=== PATIENT | female | born 1955 | race Caucasian/White ===

== ENCOUNTER 2017-08-25 15:47 | Emergency (ER) | payer SELFPAY ==
[2017-08-25 16:06] VITALS: BP 144/72
--- NOTE | 2017-08-25 16:13 | UC ---
Respiratory Complaint HPI - HPI Summary HPI Summary: Has been having asthma flare since last week when she was around chemical fumes at work. Using combivent inhaler every 3-4 hours, still wheezing and SOB. Has used inhaled steroid in past but not currently on. - History of Current Complaint Stated Complaint: EXPOSURE Time Seen by Provider: 08/25/17 16:03 Hx Obtained From: Patient ?: No Onset/Duration: Gradual Onset, Lasting Days Timing: Constant Severity Initially: Mild Severity Currently: Moderate Pain Intensity: 0 Character: Cough: Nonproductive Aggravating Factors: Exertion, Deep Breaths, Recumbent Position Alleviating Factors: Bronchodilator, Upright Position Associated Signs And Symptoms: Positive: Wheezing - Allergies/Home Medications Allergies/Adverse Reactions: Allergies Allergy/AdvReac Type Severity Reaction Status Date / Time erythromycin base Allergy GI Upset Verified 08/25/17 16:09 Gadolinium-Containing Allergy Hives Verified 08/25/17 16:09 Contrast Medi iodine Allergy Rash Verified 08/25/17 16:09 Home Medications: Home Medications Etanercept [Enbrel] 1 dose IM MONTHLY 08/25/17 [History Confirmed 08/25/17] Hydrochlorothiazide TAB* [Hydrodiuril TAB*] 1 tab PO DAILY 08/25/17 [History Confirmed 08/25/17] Insulin GLARGINE(*) [Lantus(*)] 48 unit SQ DAILY 08/25/17 [History Confirmed 11/07] Levothyroxine TAB* [Synthroid 25 MCG TAB*] 1 tab PO DAILY 08/25/17 [History Confirmed 08/25/17] PMH/Surg Hx/FS Hx/Imm Hx - Additional Past Medical History Additional PMH: RA Endocrine History: Diabetes Cardiovascular History: Hypertension Respiratory History: Asthma - Surgical History Surgical History: Yes Surgery Procedure, Year, and Place: T&A, D&C, laproscopy [employer]- lysis of adhesions , carpal tunnel [place], [place] [facility] [place], 05[place] [facility] [place], 03/26-[facility]na liver biopsy (benign), 02/25 [facility]-, (right) leg abcess. (right) internal derangement knee + meniscus tear, 12/26- removal benign liver mass, 11[place] [facility] [place], 12[place]28 [facility]- (left) TKR + (right) patella ORIF + 2 implant screws, [place] [facility] [place]. w/gastric polyp removal + CLOtest biopsy. - Family History Known Family History: Positive: Hypertension - Social History Occupation: Employed Full-time Alcohol Use: None Substance Use Type: None Smoking Status (MU): Never Smoked Tobacco Review of Systems Constitutional: Negative Skin: Negative Eyes: Negative ENT: Negative Respiratory: Shortness Of Breath, Cough Cardiovascular: Negative Gastrointestinal: Negative Genitourinary: Negative Motor: Negative Neurovascular: Negative Musculoskeletal: Negative Neurological: Negative Psychological: Negative Is Patient Immunocompromised?: No All Other Systems Reviewed And Are Negative: Yes Physical Exam Triage Information Reviewed: Yes Appearance: Well-Appearing, No Pain Distress, Obese Vital Signs: Initial Vital Signs Temp 97.6 F 08/25/17 16:03 Pulse 86 08/25/17 16:03 Resp 18 08/25/17 16:03 BP 144/72 08/25/17 16:03 Pulse Ox 97 08/25/17 16:03 Vital Signs Reviewed: Yes Eye Exam: Normal Eyes: Positive: Conjunctiva Clear ENT: Positive: Normal ENT inspection, Hearing grossly normal, Pharynx normal, TMs normal. Negative: TM bulging, TM dull, TM red Neck exam: Normal Neck: Positive: Supple, Nontender Respiratory: Positive: No respiratory distress, Decreased breath sounds. Negative: Wheezing, Expiration Cardiovascular Exam: Normal Cardiovascular: Positive: RRR, No Murmur Musculoskeletal Exam: Normal Musculoskeletal: Positive: Strength Intact Neurological Exam: Normal Neurological: Positive: Alert Psychological Exam: Normal Skin Exam: Normal UC Diagnostic Evaluation - Laboratory O2 Sat by Pulse Oximetry: 97 Re-Evaluation - Re-Evaluation First Eval Re-Evaluation Time: 16:40 Change: Improved - Increased air movement at bases Respiratory Course/Dx - Differential Dx/Diagnosis Provider Diagnoses: Asthma exacerbation Discharge - Discharge Plan Condition: Stable Disposition: HOME Prescriptions: Albuterol 2.5MG/3ML (0.083%)* [Ventolin 2.5 MG/3 ML NEB.GILLIAN*] 2.5 mg INH Q4H PRN #20 neb.gillian PRN Reason: wheezing Fluticasone HFA 110 mcg(NF) [Flovent HFA 110 mcg(NF)] 2 puff INH BID #1 mdi predniSONE TAB* [Deltasone TAB*] 40 mg PO DAILY #6 tab Patient Education Materials: Asthma (ED) Referrals: Collin Andrew MD [Primary Care Provider] - 1 Week Additional Instructions: I expect you to have clear improvement in the next 1-2 days. Continue the inhaled steroid for at least 2 weeks; follow up with your primary care office early next week. If you have increasing tightness or trouble breathing, please come back at any time.
[2017-08-25] MEDS ORDERED: Albuterol 2.5 MG/3 ML NEB.SOL* (0.083%) INH ONE (16:20)
== END 2017-08-25 16:57 | disposition home or self-care (01) ==
LOC: UCEAST 15:47
DX: J45.901 Unspecified asthma with (acute) exacerbation (principal); E11.9 Type 2 diabetes mellitus without complications; I10 Essential (primary) hypertension; Z79.4 Long term (current) use of insulin
CPT/HCPCS: 99212; G0463

== ENCOUNTER 2018-03-20 08:12 | Emergency (ER) | payer BC ==
[2018-03-20 08:25] VITALS: BP 143/79
--- NOTE | 2018-03-20 08:52 | UC ---
Lower Extremity/Ankle HPI - HPI Summary HPI Summary: ACCIDENTALLY KICKED A PIECE OF FURNITURE LAST NIGHT. HAS PAIN, SWELLING AND BRUISING TO LEFT FOURTH TOE. PAIN WITH WEIGHTBEARING AND AMBULATING. - History of Current Complaint Chief Complaint: UCLowerExtremity Stated Complaint: TOE INJURY Time Seen by Provider: 03/20/18 08:26 Hx Obtained From: Patient Onset/Duration: Sudden Onset, Lasting Hours, Still Present Severity Initially: Moderate Severity Currently: Moderate Pain Intensity: 6 Pain Scale Used: 0-10 Numeric Aggravating Factor(s): Standing, Ambulation Alleviating Factor(s): Rest Able to Bear Weight: Yes - WITH PAIN - Allergies/Home Medications Allergies/Adverse Reactions: Allergies Allergy/AdvReac Type Severity Reaction Status Date / Time erythromycin base Allergy GI Upset Verified 03/20/18 08:30 Gadolinium-Containing Allergy Hives Verified 03/20/18 08:30 Contrast Medi iodine Allergy Rash Verified 03/20/18 08:30 Home Medications: Home Medications Canagliflozin (NF) [Invokana (NF)] 200 mg PO QAM 03/20/18 [History Confirmed ] PMH/Surg Hx/FS Hx/Imm Hx - Additional Past Medical History Additional PMH: GEORGE, RA Endocrine History: Diabetes Cardiovascular History: Hypertension Respiratory History: Asthma - Surgical History Surgical History: Yes Surgery Procedure, Year, and Place: T&A, D&C, laproscopy [employer]- lysis of adhesions , carpal tunnel release, 03/24 [facility] [place]- (left) ureretal stent & lithotropsy, 05/25 [facility] [place]- colonoscopy w/biopsy, 03/26-Fna liver biopsy (benign) liver resection 2005 , 02/25 [facility] [place] (right) leg abcess. (right) internal derangement knee + meniscus tear, 12/26- removal benign liver mass, 11/28 [facility] [place]- (right) TKR, 12/28 [facility] [place]- (left ) TKR + (right)patella ORIF + 2 implant screws, 01/31 [facility] [place]- gastroscopy. w/ gastric polyp removal + CLOtest biopsy. sleeve gastrectomy 2012 - Family History Known Family History: Positive: Hypertension - Social History Alcohol Use: None Substance Use Type: None Smoking Status (MU): Never Smoked Tobacco Review of Systems Constitutional: Negative Skin: Bruising Respiratory: Negative Cardiovascular: Negative Gastrointestinal: Negative Musculoskeletal: Arthralgia, Decreased ROM, Edema All Other Systems Reviewed And Are Negative: Yes Physical Exam Triage Information Reviewed: Yes Appearance: Well-Appearing, No Pain Distress, Well-Nourished Vital Signs: Initial Vital Signs Temp 97.0 F 03/20/18 08:18 Pulse 96 03/20/18 08:18 Resp 18 03/20/18 08:18 BP 143/79 03/20/18 08:18 Pulse Ox 96 03/20/18 08:18 Vital Signs Reviewed: Yes Eyes: Positive: Conjunctiva Clear ENT: Positive: Hearing grossly normal Neck: Positive: Supple Respiratory: Positive: No respiratory distress, No accessory muscle use Cardiovascular: Positive: Pulses Normal Musculoskeletal: Positive: ROM Limited @ - LEFT TOES, Edema @ - LEFT 4TH TOE, Other: - TTP LEFT 4TH TOE AND DISTAL METATARSAL Neurological: Positive: Alert Psychological: Positive: Age Appropriate Behavior Skin: Positive: Other - LEFT 4TH TOE BRUISED Diagnostics - Radiology LEFT 4TH TOE XRAYS Xray Interpretation: No Acute Changes - SMALL LUCENT LINE EXTENDING TO THE PROXIMAL MEDIAL CORTEX OF THE FOURTH METATARSAL LIKELY REPRESENTING A NUTRIENT FORAMEN LESS LIKELY A FRACTURE Radiology Interpretation Completed By: Radiologist Lower Extremity Course/Dx - Differential Dx/Diagnosis Provider Diagnoses: CONTUSION LEFT 4TH TOE Discharge - Sign-Out/Discharge Documenting (check all that apply): Patient Departure All imaging exams completed and their final reports reviewed: Yes - Discharge Plan Condition: Stable Disposition: HOME Patient Education Materials: Foot Contusion (ED) Referrals: Collin Andrew MD [Primary Care Provider] - If Needed Additional Instructions: XRAY TODAY SHOWS SMALL LUCENT LINE EXTENDING TO THE PROXIMAL MEDIAL CORTEX OF THE FOURTH METATARSAL LIKELY REPRESENTING A NUTRIENT FORAMEN LESS LIKELY A FRACTURE. POST-OP SHOE FOR COMFORT. FOLLOW-UP IF YOUR PAIN IS NOT IMPROVING EXPECTED. - Billing Disposition and Condition Condition: STABLE Disposition: Home
--- NOTE | 2018-03-20 09:02 | RAD ---
INDICATION: Left fourth toe injury. TECHNIQUE: 3 views of the left fourth toe were obtained. FINDINGS: There is lateral soft tissue swelling. The bones are in normal alignment. There is a linear lucency extending through the medial cortex of the proximal diaphysis of the fourth metatarsal likely representing a nutrient foramen less likely a nondisplaced fracture. IMPRESSION: SMALL LUCENT LINE EXTENDING TO THE PROXIMAL MEDIAL CORTEX OF THE FOURTH METATARSAL LIKELY REPRESENTING A NUTRIENT FORAMEN LESS LIKELY A FRACTURE RECOMMEND CORRELATION FOR POINT TENDERNESS.
== END 2018-03-20 09:57 | disposition home or self-care (01) ==
LOC: UCEAST 08:12
DX: S90.122A Contusion of left lesser toe(s) without damage to nail, initial encounter (principal); W22.03XA Walked into furniture, initial encounter; Y93.9 Activity, unspecified; Y92.9 Unspecified place or not applicable; E11.9 Type 2 diabetes mellitus without complications; Z79.84 Long term (current) use of oral hypoglycemic drugs; Z88.1 Allergy status to other antibiotic agents; Z88.3 Allergy status to other anti-infective agents; Z91.041 Radiographic dye allergy status
CPT/HCPCS: 99213; G0463